=== PATIENT | female | born 1995 | race Caucasian/White ===

== ENCOUNTER 2016-07-29 00:25 | Emergency (ER) | payer OTHER ==
[~2016-07-29] VITALS: Ht 157.5 cm; Wt 67.1 kg
[2016-07-29 00:55] VITALS: BP 142/90
--- NOTE | 2016-07-29 02:54 | NUR ---
AMBULATED TO ER BED 6
--- NOTE | 2016-07-29 03:00 | NUR ---
Patient being evaluated by physician at bedside.
--- NOTE | 2016-07-29 03:00 | NUR ---
21 Y/O F W/C/O bee sting WHICH TOOK PLACE 2 days ago on rt forearm. removed stinger, but continues to hurt and remains red. has taken benadryl. ARM APPEARS RED, AND SLIGHTLY SWOLLEN. NO S/S OF RESP DISTRESS NOTED. PT O2 SAT 99% IN RA. DENIES SBO. ER MD AT BEDSIDE.
[2016-07-29 03:47] VITALS: BP 126/84
--- NOTE | 2016-07-29 03:47 | NUR ---
Patient discharged with v/s stable, NO S/S OF RESP DISTRESS NOTED AT THE MOMENT. Written and verbal after care instructions given and explained. Patient alert, oriented and verbalized understanding of instructions. Ambulatory with steady gait. All questions addressed prior to discharge. ID band removed. Patient advised to follow up with PMD IN 2 DAYS OR RETURN TO ER IF CONDITION WORSENS. Rx of DOXYCYCLINE, TYLENOL WITH CODEINE NAD HYDROCORTISONE CREAM given. Patient educated on indication of medication including possible reaction and side effects. Opportunity to ask questions provided and answered.
== END 2016-07-29 03:47 | disposition home or self-care (01) ==
LOC: MED 00:25
DX: L03.113 Cellulitis of right upper limb (principal)
CPT/HCPCS: 81025; 99283; J7030